=== PATIENT | male | born 1995 | race African-American/Black ===

== ENCOUNTER → 2023-03-21 | Emergency (ER) | payer OTHER ==
[~2023-03-21] VITALS: Ht 175.3 cm; Wt 115.7 kg
== END | disposition left against medical advice (07) ==
LOC: ER 10:39
DX: S80.862A Insect bite (nonvenomous), left lower leg, initial encounter (principal); W57.XXXA Bitten or stung by nonvenomous insect and other nonvenomous arthropods, initial encounter; Y93.89 Activity, other specified; Y92.89 Other specified places as the place of occurrence of the external cause